=== PATIENT | female | born 1960 ===

== ENCOUNTER 2017-09-29 11:23 | Emergency (ER) | payer OTHER ==
[2017-09-29 11:29] VITALS: BP 142/50; PULSE 68; TEMP 97; O2SAT 98
[2017-09-29 11:30] VITALS: BMI 24.0
--- NOTE | 2017-09-29 11:53 | ED PDOC ---
Upper Extremity Pain/Injury Time Seen by Provider: 09/29/17 11:39 Chief Complaint (Nursing): Upper Extremity Problem/Injury Chief Complaint (Provider): LEft wrist fracture History Per: Patient History/Exam Limitations: no limitations Onset/Duration Of Symptoms: Hrs Current Symptoms Are (Timing): Still Present Additional Complaint(s): Pt fell last evening at a [employer]. PT reports left wrist pain. [facility]. PT states she took motrin which was prescribed but it did not help so she came to ER. Denies numbness/tingling. Past Medical History Reviewed: Historical Data, Nursing Documentation, Vital Signs Vital Signs: Last Vital Signs Temp 97 F L 09/29/17 11:28 Pulse 68 09/29/17 11:28 Resp BP 142/50 L 09/29/17 11:28 Pulse Ox 98 09/29/17 11:28 - Medical History PMH: Hypercholesterolemia - Surgical History Surgical History: No Surg Hx - Family History Family History: States: Unknown Family Hx - Living Arrangements Living Arrangements: With Family - Social History Current smoker - smoking cessation education provided: No - Home Medications Home Medications: Ambulatory Orders Medication Instructions Recorded Naproxen [Naprosyn] 500 mg PO BID PRN #14 tab 09/29/17 - Allergies Allergies/Adverse Reactions: Allergies Allergy/AdvReac Type Severity Reaction Status Date / Time No Known Allergies Allergy Verified 09/29/17 06:30 Review of Systems ROS Statement: Except As Marked, All Systems Reviewed And Found Negative Constitutional: Negative for: Fever, Chills Musculoskeletal: Positive for: Other (Left wrist pain) Physical Exam - Reviewed Nursing Documentation Reviewed: Yes Vital Signs Reviewed: Yes - Physical Exam Appears: Positive for: Well, Non-toxic, No Acute Distress Head Exam: Positive for: ATRAUMATIC, NORMAL INSPECTION, NORMOCEPHALIC Skin: Positive for: Normal Color, Warm, DRY Eye Exam: Positive for: Normal appearance ENT: Positive for: Normal ENT Inspection Neck: Positive for: Normal, Painless ROM Respiratory: Negative for: Accessory Muscle Use, Respiratory Distress Pulses-Radial (L): 2+ Pulses-Radial (R): 2+ Back: Positive for: Normal Inspection Extremity: Positive for: Capillary Refill (< 2 seconds ), Swelling (No swelling of fingers ). Negative for: Normal ROM (Pt in splint. ) Neurologic/Psych: Positive for: Alert, Oriented - ECG O2 Sat by Pulse Oximetry: 98 Disposition - Clinical Impression Clinical Impression: Wrist fracture - Patient ED Disposition Is Patient to be Admitted: No Counseled Patient/Family Regarding: Diagnosis, Need For Followup, Rx Given - Disposition Referrals: Mendoza Rivers MD [Medical Doctor] - [facility] [Outside] Disposition: Routine/Home Disposition Time: 11:54 Condition: GOOD Instructions: Wrist Fracture in Adults (ED) Forms: [facility] (Maltese) Print Language: MOLDOVAN
== END 2017-09-29 12:17 | disposition home or self-care (01) ==
LOC: H.ER 11:23
DX: M25.532 Pain in left wrist (principal); E78.00 Pure hypercholesterolemia, unspecified